=== PATIENT | female | born 1940 | race Caucasian/White ===

== ENCOUNTER 2017-11-10 13:36 | Outpatient (CLI) | payer MEDICARE, OTHER | END 2017-11-10 13:37 | disposition home or self-care (01) | LOC: BICMAMMO 13:36 | PROVIDERS: ATTEND Internal Medicine Geriatric Medicine | DX: Z12.31 Encounter for screening mammogram for malignant neoplasm of breast (principal); Z13.820 Encounter for screening for osteoporosis; N64.89 Other specified disorders of breast | CPT/HCPCS: 77063; 77067; 77080 ==

== ENCOUNTER 2018-07-11 08:25 | Inpatient (IN) | payer MEDICARE, OTHER ==
[2018-07-11] MEDS ORDERED: Ondansetron PF 4 MG/2 ML Vial ONE (09:13)
[2018-07-11] MEDS ORDERED: Morphine 4 MG/ML VIAL ONE (09:13)
[2018-07-11 09:43] LABS: #Lymphocytes 0.8 thou/uL (1.20-3.40); #Monocytes 0.5 thou/uL (0.11-0.59); #Neutrophils 9.9 thou/uL (1.40-6.50); %Basophils 0.4 % (0.0-1.0); %Eosinophils 0.3 % (0.0-10.0); %Lymphocytes 7.1 % (21.0-51.0); %Monocytes 4.4 % (0.0-10.0); %Neutrophils 87.8 % (42.0-75.0); Hemoglobin 12.6 g/dL (12.0-16.0); Mean Corpuscular HGB CONC 32.9 g/dL (32.0-36.0); Mean Corpuscular Hemoglobin 32.3 pg (27.0-31.0); Mean Corpuscular Volume 98.1 fL (78.0-98.0); Mean Platelet Volume 7.4 fL (7.4-10.4); Platelet Count 310 thou/uL (130-400); RBC Distribution Width 10.7 % (11.5-14.5); Red Blood Cell (RBC) Count 3.91 mill/uL (4.20-5.40); White Blood Cell (WBC) Count 11.2 thou/uL (4.8-10.8)
[2018-07-11 10:05] LABS: ALT (SGPT) 8 U/L (8-55); AST (SGOT) 14 U/L (5-34); Albumin 3.8 g/dL (3.4-4.8); Alkaline Phosphatase 88 U/L (40-150); Anion Gap 13 mmol/L (10-20); BUN (Urea Nitrogen) 21 mg/dL (9.8-20.1); Bilirubin, Total 0.3 mg/dL (0.2-1.2); Calc. Creatinine Clearance 0 mL/min (70-130); Calcium 8.8 mg/dL (7.8-10.44); Carbon Dioxide 22 mmol/L (23-31); Chloride 108 mmol/L (98-107); Estimated GFR-MDRD 62; Globulin 2.7 g/dL (2.4-3.5); Glucose 139 mg/dL (83-110); Lipase 20 U/L (8-78); Potassium 3.7 mmol/L (3.5-5.1); Protein, Total 6.5 g/dL (6.0-8.3); Sodium 139 mmol/L (136-145)
--- NOTE | 2018-07-11 11:02 | CT ---
CT OF THE CHEST WITH CONTRAST CT OF THE ABDOMEN AND PELVIS WITH CONTRAST LIMITED CTS OF THORACIC AND LUMBOSACRAL SPINE WITH COTNRAST: HISTORY: Alzheimer's disease who fell on the right side of her body putting shoes on this morning. Chest pain , abdominal pain, and pain in the right side of her torso and chest. TECHNIQUE: 1. Multiple contiguous axial images were obtained in a CT of the chest with contrast. Coronal refor mats were performed. 2. Multiple contiguous axial images were obtained in a CT of the abdomen and pelvis with contrast. Coronal reformats were performed. 3. Limited CTs of the thoracic and lumbosacral spines were performed. Sagittal and coronal reformat s were created based off images obtained in the chest, abdomen, and pelvic CTs. FINDINGS: CT CHEST: The heart is normal in size without focal cardiac abnormality. No hilar or mediastinal lymphadenopat hy are seen. Atelectasis is seen in both lung bases. There is a trace right pleural effusion. A trace right apic al pneumothorax is seen. There are fractures of the right posterolateral 7th, 8th, and 9th ribs. No left-sided rib fractures are seen. The chest wall soft tissues are unremarkable. CT ABDOMEN/PELVIS: A hypodensity is seen in a geographic distribution just anterior to the gallbladder which is nonspeci fic. There is a cyst in the left kidney measuring 2.3 cm in greatest dimension. The right kidney, a drenal glands, gallbladder, spleen, and pancreas show no acute abnormality. No free air, free fluid, or stranding changes are seen in the abdomen or pelvis. The patient is status post hysterectomy. T he large and small bowel are unremarkable. No abdominal or pelvis lymphadenopathy are seen. The bones of the pelvis and abdominal wall soft tissues are unremarkable. LIMITED CT OF THE THORACIC AND LUMBOSACRAL SPINE: There are moderate degenerative changes through the thoracic and lumbosacral spine without acute frac ture or subluxation. No prevertebral soft tissue swelling is present. IMPRESSION: 1. Multiple right-sided rib fractures with trace right apical pneumothorax and trace right-sided ple ural effusion. 2. No evidence of acute intraabdominal/pelvic abnormality. 3. Left renal cyst. 4. Nonspecific decreased enhancement just anterior to the gallbladder. 5. No evidence of acute osseous abnormality of the thoracic or lumbosacral spine. POS: [facility]
[2018-07-11] MEDS ORDERED: Promethazine HCl 25 MG/ML VIAL IM PRN (11:40)
[2018-07-11] MEDS ORDERED: Ondansetron PF 4 MG/2 ML Vial IVP PRN (11:40)
[2018-07-11] MEDS ORDERED: Ondansetron ODT 4 MG TAB PO PRN (11:40)
[2018-07-11] MEDS ORDERED: Dextrose 5% in Water 1,000 ML IV PRN (11:40)
[2018-07-11] MEDS ORDERED: Dextrose 50% Abboject 50 ML SYRINGE SLOW IVP PRN (11:40)
[2018-07-11] MEDS ORDERED: Rib Fracture Protocol PO PRN (11:45)
[2018-07-11] MEDS ORDERED: Ketorolac Tromethamine 30 MG/ML VIAL ONE (11:54)
[2018-07-11] MEDS ORDERED: ISOVUE-370 76%-LOCM 1 ML ONE (12:45)
[2018-07-11] MEDS ORDERED: Cyclobenzaprine 10 MG TAB PO PRN (13:00)
--- NOTE | 2018-07-11 13:02 | HP ---
HISTORY OF PRESENT ILLNESS: A 77-year-old woman with history of senile dementia, Alzheimer's type. The patient was putting socks on this morning. When she attempted to stand up, she slipped on the linoleum floor, fallen against the edge of a wooden cabinet. The patient reported 10/10 pain immediately after the fall, which was prohibitive to deep breathing. The patient denies any nausea or vomiting. She denies any chest or abdominal pain aside from the right chest wall pain. She was brought to the emergency department where she was evaluated first by ED physician. At the time of my evaluation, she is awake and alert. She is at baseline, GCS of 14, which is E4, M6, V4. According to the patient's daughter at bedside, mother is at her baseline neurological function. She moves all extremities and does answer questions. PAST MEDICAL HISTORY: Pertinent for chronic depression, senile dementia of Alzheimer's type. PAST SURGICAL HISTORY: Pertinent for a total abdominal hysterectomy. SOCIAL HISTORY: She lives at home with her daughter. She has no cigarette smoking, ethanol, or illicit drug abuse history. PRE-HOSPITAL MEDICATIONS: Include: 1. Acetazolamide 125 mg q.a.m. 2. Aspirin 81 mg p.o. q.a.m. 3. Donepezil 10 mg p.o. at bedtime. 4. Fluoxetine 40 mg p.o. daily. 5. Melatonin 10 mg p.o. at bedtime. 6. Nuedexta 20 mg p.o. at bedtime. 7. Quetiapine 50 mg p.o. at bedtime. ALLERGIES: THE PATIENT HAS NO KNOWN DRUG ALLERGIES. FAMILY HISTORY: Noncontributory for this patient's age. REVIEW OF SYSTEMS: Ten-point review of systems is essentially unremarkable except for as stated in the past medical history and chief complaint. PHYSICAL EXAMINATION: GENERAL: This reveals a 77-year-old normally developed woman, who is otherwise coherent and interactive and appears stated age. The patient is alert and oriented x3. She appears to be in no acute distress at the time of my evaluation. VITAL SIGNS: Include blood pressure 112/67, pulse 62, respiratory rate is 17, temperature is 97.9 degrees Fahrenheit, and oxygen saturation 100% on room air. HEENT: Reveals normocephalic and atraumatic. Her pupils are equal, round, and reactive to light and accommodation. Extraocular muscles are intact bilaterally. No scleral icterus is present. Oral mucosa is pink and moist. No lesions are noted. NECK: Supple. No palpable lymphadenopathy or thyromegaly present. She has no jugular venous distention noted. CHEST: Chest wall is stable with right chest wall palpable crepitus. She has exquisite tenderness to palpation of the right chest wall. HEART: Reveals regular rate and rhythm. No murmurs or gallops auscultated. LUNGS: Clear to auscultation bilaterally. Her breathing is regular and nonlabored. ABDOMEN: Soft, nontender, and nondistended. Bowel sounds in all 4 quadrants appear normoactive. She has a healed low Pfannenstiel incision consistent with prior history of abdominal hysterectomy. Liver and spleen otherwise nonpalpable below costal margin. EXTREMITIES: Reveal 2+ radial and pedal pulses bilaterally. No ankle edema is present. NEUROLOGIC: Reveals no focal deficits present. LABORATORY AND IMAGING DATA: Laboratory findings today include a CBC with 11,200 white blood cells, hemoglobin and hematocrit 12.6 and 38.4 respectively, and platelet count is 310,000. Metabolic profile; sodium 139, potassium is 3.7, chloride is 108, bicarb is 22, BUN 21, creatinine 0.88, glucose 139, total bilirubin 0.3, AST and ALT 14 and 8 respectively. Alkaline phosphatase is 88. Serum lipase is also normal at 20. I have personally reviewed the CT scan of the chest, abdomen, and pelvis. This is remarkable for multiple right-sided rib fractures involving ribs #7 laterally and 8 and 9 posterolaterally. There is also residual small apical right pneumothorax. A small amount of right-sided subcutaneous emphysema is also noted. No other acute intrathoracic or intraabdominal pathology is evident. Thoracic and lumbar spine have no fractures or dislocation. IMPRESSIONS: 1. Status post ground-level fall. 2. Right blunt chest trauma with multiple right rib fractures involving ribs 7 through 9. 3. Small right pneumothorax. 4. History of senile dementia of Alzheimer's type. 5. History of chronic depression. PLAN: 1. We will initiate rib fracture protocol for optimum pain management and pulmonary toileting. 2. Initiate physical and occupational therapy. 3. We will continue with nonpharmacological VTE prophylaxis at this time. 4. We will resume all pre-hospital medications as prescribed by the patient's primary care physician. Above findings and plan discussed with the patient and her daughter at bedside. They indicated understanding of information given. The patient and daughter have granted consent for this admission. Job ID: [id number]
[2018-07-11 14:27] VITALS: BMI 25.1
[2018-07-11] MEDS: Sodium Chloride 0.9% 1,000 ML IV SCH (15:36)
[2018-07-11] MEDS: Gabapentin 100 MG CAP PO SCH ×2 (15:41→20:43)
[2018-07-11] MEDS: Acetaminophen 500 MG TAB PO SCH ×2 (17:53→23:27)
[2018-07-11] MEDS: Ketorolac Tromethamine 30 MG/ML VIAL IVP SCH ×2 (17:54→23:27)
[2018-07-11] MEDS: Acetaminophen 650 MG Suppository PR SCH ×2 (17:55→23:27)
[2018-07-11] MEDS ORDERED: traMADol HCl 50 MG TAB PO SCH (18:00)
[2018-07-11] MEDS: Donepezil HCl 10 MG TAB PO SCH (20:40)
[2018-07-11] MEDS: traMADol HCl 50 MG TAB PO SCH (20:43)
[2018-07-11] MEDS: Famotidine 20 MG TAB PO SCH (20:43)
[2018-07-12] MEDS: traMADol HCl 50 MG TAB PO SCH ×4 (04:06→20:04)
[2018-07-12] MEDS: Sodium Chloride 0.9% 1,000 ML IV SCH ×2 (04:14→13:23)
[2018-07-12 05:01] LABS: #Lymphocytes 1.7 thou/uL (1.20-3.40); #Monocytes 0.7 thou/uL (0.11-0.59); #Neutrophils 4.9 thou/uL (1.40-6.50); %Basophils 0.7 % (0.0-1.0); %Eosinophils 0.5 % (0.0-10.0); %Lymphocytes 22.6 % (21.0-51.0); %Monocytes 9.7 % (0.0-10.0); %Neutrophils 66.6 % (42.0-75.0); Hemoglobin 12.3 g/dL (12.0-16.0); Mean Corpuscular HGB CONC 31.8 g/dL (32.0-36.0); Mean Corpuscular Hemoglobin 32.1 pg (27.0-31.0); Mean Platelet Volume 7.5 fL (7.4-10.4); Platelet Count 261 thou/uL (130-400); RBC Distribution Width 10.9 % (11.5-14.5); Red Blood Cell (RBC) Count 3.82 mill/uL (4.20-5.40); White Blood Cell (WBC) Count 7.4 thou/uL (4.8-10.8)
[2018-07-12 05:21] LABS: Anion Gap 13 mmol/L (10-20); BUN (Urea Nitrogen) 18 mg/dL (9.8-20.1); Calc. Creatinine Clearance 62 mL/min (70-130); Calcium 8.5 mg/dL (7.8-10.44); Carbon Dioxide 17 mmol/L (23-31); Chloride 109 mmol/L (98-107); Estimated GFR-MDRD 67; Glucose 86 mg/dL (83-110); Magnesium 2.1 mg/dL (1.6-2.6); Phosphorus 3.2 mg/dL (2.3-4.7); Sodium 135 mmol/L (136-145)
[2018-07-12] MEDS: Acetaminophen 650 MG Suppository PR SCH ×2 (06:35→11:46)
[2018-07-12] MEDS: Acetaminophen 500 MG TAB PO SCH ×3 (06:37→18:02)
[2018-07-12] MEDS: Ketorolac Tromethamine 30 MG/ML VIAL IVP SCH (06:37)
[2018-07-12] MEDS: Gabapentin 100 MG CAP PO SCH ×3 (08:31→19:54)
[2018-07-12] MEDS: FLUoxetine HCl 20 MG CAP PO SCH (08:31)
[2018-07-12] MEDS: Famotidine 20 MG TAB PO SCH ×2 (08:33→19:54)
[2018-07-12] MEDS: AcetaZOLAMIDE 250 MG TAB PO SCH (08:34)
--- NOTE | 2018-07-12 08:40 | RAD ---
SINGLE VIEW CHEST: Date: 07/12/18 COMPARISON: 09/29/12. HISTORY: Pneumothorax. FINDINGS: Single view of the chest shows normal size cardiomediastinal silhouette. Increased interstitial lung markings are present. There is no evidence of consolidation, mass, pneumothorax, or pleural effusion. There are multiple right rib fractures. IMPRESSION: No pneumothorax visualized. POS: [facility]
[2018-07-12] MEDS ORDERED: Aspirin 81 mg Enteric Coated Tablet PO SCH (09:00)
[2018-07-12 12:55] LABS: Folate (Folic Acid) 4.8 ng/mL (7.0-31.4)
[2018-07-12] MEDS: Ibuprofen 600 MG TAB PO SCH ×2 (13:23→22:30)
--- NOTE | 2018-07-12 14:31 | PRG ---
DATE OF SERVICE: 07/12/2018 SUBJECTIVE: This is a 77-year-old woman, who is status post ground-level fall, on aspirin. She suffered from right rib fractures 7 through 9 and small right pneumo with pneumothorax with effusion. No surgical intervention, just medical management.. Per nurse, no acute events overnight with stable vital signs. She has had intermittent use of her ICS. The patient has no acute complaints this morning and is resting comfortably in bed just having finished the majority of her breakfast. She only complains of mild pain at the right rib fracture site. Upon talking with daughter, the patient's baseline involves being able to ambulate and function independently on her own. We believe that the fall is from instability, not due to any type of acute cardiac or neurogenic causes. OBJECTIVE: VITAL SIGNS: Temperature 98.4, pulse 70, respirations 16, O2 saturation 98 on room air, and BP 110/66. GENERAL: The patient is resting comfortably in bed, lying down. HEENT: PERRL, unremarkable otherwise. CARDIOVASCULAR: Regular rate and rhythm. No rubs, murmurs, or gallops. LUNGS: Clear to auscultation in breathing, decreased respiratory effort due to rib pain. ABDOMEN: Normoactive bowel sounds. Soft, nondistended, and nontender. EXTREMITIES: Neurovascularly intact, moves all 4 extremities. LABORATORY DATA: WBC 7.4, hemoglobin 12.3, hematocrit 38.5, and MCV 101. Sodium 135, chloride 109, carbon dioxide 17, creatinine 0.82, and GFR 67. Vitamin B12 of 502 and folate 4.8. ASSESSMENT AND PLAN: 1. Ground-level fall from standing while on aspirin. 2. Right rib fractures with trace right apical pneumothorax and pleural effusion. 3. Continue pain medication regimen. Encourage the patient to use ICF. 4. We will consult Physical Therapy for inpatient screening as the patient will likely need inpatient rehab upon discharge. 5. We will increase aspirin to b.i.d. dosing. The patient was seen and examined by Dr. Barnard, who agrees with plan above. Job ID: [id number] MTDD
[2018-07-12] MEDS: Aspirin 81 mg Enteric Coated Tablet PO SCH (19:54)
[2018-07-12] MEDS: Donepezil HCl 10 MG TAB PO SCH (19:54)
[2018-07-13] MEDS: Acetaminophen 500 MG TAB PO SCH ×3 (00:47→11:25)
[2018-07-13] MEDS: Sodium Chloride 0.9% 1,000 ML IV SCH (00:58)
[2018-07-13] MEDS: traMADol HCl 50 MG TAB PO SCH ×3 (03:50→14:19)
[2018-07-13] MEDS: Ibuprofen 600 MG TAB PO SCH ×2 (05:14→14:18)
[2018-07-13 07:00] LABS: #Eosinphils 0.1 thou/uL (0.0-0.7); #Lymphocytes 1.1 thou/uL (1.20-3.40); #Monocytes 0.5 thou/uL (0.11-0.59); #Neutrophils 4.2 thou/uL (1.40-6.50); %Basophils 0.6 % (0.0-1.0); %Lymphocytes 18.4 % (21.0-51.0); %Monocytes 8.6 % (0.0-10.0); %Neutrophils 70.3 % (42.0-75.0); Hemoglobin 11.3 g/dL (12.0-16.0); Mean Corpuscular Hemoglobin 31.8 pg (27.0-31.0); Mean Corpuscular Volume 99.6 fL (78.0-98.0); Mean Platelet Volume 7.6 fL (7.4-10.4); Platelet Count 273 thou/uL (130-400); RBC Distribution Width 10.9 % (11.5-14.5); Red Blood Cell (RBC) Count 3.56 mill/uL (4.20-5.40)
[2018-07-13 07:18] LABS: Anion Gap 9 mmol/L (10-20); BUN (Urea Nitrogen) 13 mg/dL (9.8-20.1); Calc. Creatinine Clearance 61 mL/min (70-130); Calcium 8.6 mg/dL (7.8-10.44); Carbon Dioxide 23 mmol/L (23-31); Chloride 113 mmol/L (98-107); Estimated GFR-MDRD 66; Glucose 75 mg/dL (83-110); Magnesium 1.9 mg/dL (1.6-2.6); Phosphorus 2.8 mg/dL (2.3-4.7); Potassium 4.1 mmol/L (3.5-5.1); Sodium 141 mmol/L (136-145)
[2018-07-13] MEDS: Aspirin 81 mg Enteric Coated Tablet PO SCH (08:44)
[2018-07-13] MEDS: AcetaZOLAMIDE 250 MG TAB PO SCH (08:44)
[2018-07-13] MEDS: Famotidine 20 MG TAB PO SCH (08:45)
[2018-07-13] MEDS: FLUoxetine HCl 20 MG CAP PO SCH (08:45)
[2018-07-13] MEDS: Gabapentin 100 MG CAP PO SCH (08:45)
[2018-07-13] MEDS ORDERED: Polyethylene Glycol 3350 17 GM Packet PO SCH (09:00)
[2018-07-13] MEDS ORDERED: Folic Acid 1 MG TAB PO SCH (09:00)
[2018-07-13] MEDS ORDERED: Senokot 8.6 MG TAB PO SCH ×3 (09:00)
[2018-07-13 11:57] VITALS: BP 110/64; TEMP 98.1
--- NOTE | 2018-07-14 02:24 | DIS ---
DATE OF ADMISSION: 07/11/2018 DATE OF DISCHARGE: 07/13/2018 ADMISSION DIAGNOSES: 1. Status post ground-level fall. 2. Right blunt chest trauma with multiple right rib fractures involving rib 5, 8, and 9. 3. Small pneumothorax. 4. History of senile dementia of Alzheimer's type. 5. History of chronic depression. CONSULTATIONS: None. PROCEDURES: None. SUMMARY: The patient is a 77-year-old woman who reportedly had a fall at home, landing on her right chest. She was brought to the emergency department, evaluated, examined, and noted to have the above injuries. She will be admitted to the hospital for pain control, pulmonary toilet, and close monitoring. On the day of discharge, the patient was ambulatory using her walker and she was able to ambulate greater than 250 feet. She was working with her incentive spirometry though with her dementia, she did have difficulty with it only purely due to the physical mechanics and she was able to clearly inspire and exhale without difficulty. The patient was tolerating her diet and her pain was controlled. She will follow up with trauma clinic in 2 weeks or sooner as needed. The patient was resumed on all of her home medications at discharge also. Job ID: [id number]
== END 2018-07-13 14:55 | disposition home health service (06) | DRG 200 ==
LOC: ERS 08:25 → SURG B 11:40 → OBSVTOIN 11:40
PROVIDERS: ADMIT Surgery; ATTEND Surgery
DX: S27.0XXA Traumatic pneumothorax, initial encounter (principal); S22.41XA Multiple fractures of ribs, right side, initial encounter for closed fracture; J90 Pleural effusion, not elsewhere classified; W06.XXXA Fall from bed, initial encounter; G30.1 Alzheimer's disease with late onset; F02.80 Dementia in other diseases classified elsewhere, unspecified severity, without behavioral disturbance, psychotic disturbance, mood disturbance, and anxiety; F32.9 Major depressive disorder, single episode, unspecified; R40.2363 Coma scale, best motor response, obeys commands, at hospital admission; R40.2143 Coma scale, eyes open, spontaneous, at hospital admission; R40.2243 Coma scale, best verbal response, confused conversation, at hospital admission; Z90.710 Acquired absence of both cervix and uterus; Z79.82 Long term (current) use of aspirin; Z79.899 Other long term (current) drug therapy
CPT/HCPCS: 36415; 71045; 71260; 74177; 80048; 80053; 82607; 82746; 83690; 83735; 84100; 85025; 93005; 94640; 96374; 96375; G0390; J1885; J2270; J2405; J7620; Q9966